=== PATIENT | male | born 1995 | race Caucasian/White ===

== ENCOUNTER 2017-02-28 17:46 | Emergency (ER) | payer MEDICAID ==
[~2017-02-28] VITALS: Ht 177.8 cm; Wt 72.0 kg
[2017-02-28 23:41] LABS: CLARITY URINE TURBID (CLEAR); COLOR URINE YELLOW (YELLOW); KETONES URINE NEGATIVE (NEGATIVE); LEUKOCYTE ESTERASE URINE NEGATIVE (NEGATIVE); NITRITE URINE NEGATIVE (NEGATIVE); OCCULT BLOOD URINE NEGATIVE (NEGATIVE); PH URINE 7.5 (4.5-8.0); PROTEIN URINE NEGATIVE (NEGATIVE); SPECIFIC GRAVITY URINE 1.025 (1.005-1.030)
[2017-03-01] MEDS: ONDANSETRON 4MG ODT PO NR (01:49)
[2017-03-01] MEDS: KETOROLAC 30MG/ML VIAL IM NR (01:49)
[2017-03-01] MEDS: CEFTRIAXONE SODIUM 250 MG/VIAL IM ONE (03:47)
[2017-03-01 04:15] VITALS: BP 102/62
== END 2017-03-01 03:46 | disposition home or self-care (01) ==
LOC: ER 20:09
DX: N45.1 Epididymitis (principal); L60.0 Ingrowing nail; F12.10 Cannabis abuse, uncomplicated
CPT/HCPCS: 76870; 81001; 93976; 96372; 99285; J0696; J1885; Q0162; Z7610

== ENCOUNTER 2017-12-03 09:10 | Emergency (ER) | payer MEDICAID ==
[~2017-12-03] VITALS: Ht 160 cm; Wt 65.0 kg
[2017-12-03] MEDS ORDERED: LIDOCAINE HCL/PF 1% 10 MG/ML 5ML VIAL IJ ONE (11:00)
[2017-12-03] MEDS ORDERED: BACITRACIN ZINC OINT UDPKT TOP ONE (11:00)
[2017-12-03] MEDS ORDERED: LIDOCAINE HCL 1% 10 MG/ML 10ML VIAL INJ ONE (11:30)
[2017-12-03 11:54] VITALS: BP 112/66
== END 2017-12-03 11:56 | disposition home or self-care (01) ==
LOC: ER 09:10
DX: M79.675 Pain in left toe(s) (principal); F12.10 Cannabis abuse, uncomplicated
CPT/HCPCS: 11730; 99283; J3490; Z7610

== ENCOUNTER 2018-08-29 18:00 | Emergency (ER) | payer MEDICAID ==
[~2018-08-29] VITALS: Ht 177.8 cm; Wt 73.0 kg
[2018-08-29 18:25] VITALS: BP 105/60
== END 2018-08-29 21:52 | disposition left against medical advice (07) ==
LOC: ER 18:00
DX: L60.0 Ingrowing nail (principal); Z53.21 Procedure and treatment not carried out due to patient leaving prior to being seen by health care provider